=== PATIENT | male | born 1930 | race Caucasian/White ===

== ENCOUNTER → 2016-08-17 | Outpatient (CLI) | payer MEDICARE, BC ==
[~2016-08-17] MED LIST: ASPIRIN EC81 MG PO; COLACE-DPS100 MG PO; MAALOX DPS30 ML PO; PROCARDIA XL DP30 MG PO; TOPROL XL100 MG PO; TYLENOL DPS325 MG PO; XANAX DPS0.25 MG PO
== END | disposition home or self-care (01) ==
LOC: RAD.S 11:06
DX: R31.9 Hematuria, unspecified (principal); K59.00 Constipation, unspecified; Q61.02 Congenital multiple renal cysts; N40.0 Benign prostatic hyperplasia without lower urinary tract symptoms; K40.90 Unilateral inguinal hernia, without obstruction or gangrene, not specified as recurrent; R91.8 Other nonspecific abnormal finding of lung field

== ENCOUNTER 2016-09-08 04:51 | Inpatient (IN) | payer MEDICARE, BC ==
[~2016-09-08] VITALS: Ht 172.7 cm; Wt 70.4 kg
--- NOTE | ~2016-09-08 | HP ---
ADMIT: 09/08/2016 RM/LOC: 533 [facility] MR#: [id number] ACC#: [id number] [address] [address] DAIJA MILLER [address] [place] [address] History and Physical SEX: M AGE: 86 : 1930 DATE OF SERVICE: CHIEF COMPLAINT AND HISTORY OF THE PRESENT ILLNESS: This 86-year-old male, who is brought to the emergency room because of increasing weakness. He was found at home. He has had problems with decreasing strength. He has had problems of urinary retention. He has had a catheter inserted and there was no reported loss of consciousness. PREVIOUS MEDICAL HISTORY: Has been fair. MEDICATIONS: Include: 1. Metoprolol. 2. Aspirin. 3. Nifedipine. ALLERGIES: NONE. SOCIAL HISTORY: The patient has been a heavy smoker all of his life. He is . He has lived with his . He has ninth grade education. Alcohol is an occasional beer. FAMILY HISTORY: Includes heart disease, hypertension, cancer, and stroke. REVIEW OF SYSTEMS: HEENT: There has been some hearing loss and also he has had sinus problems. He wears glasses. CARDIORESPIRATORY: The patient has a history of hypertension. No myocardial infarctions. No chest pains or dyspnea. No deep vein thrombophlebitis or syncope. GI: No nausea, vomiting, constipation, bloody stools, diarrhea. He has had a malignancy in the colon and/or rectum. : There has been a history of prostatic hypertrophy and urinary retention. MUSCULOSKELETAL: NEUROPSYCHIATRIC: The patient has a history of memory loss. He also has been difficult to work with at home and has required help from home health care for baths. PHYSICAL EXAMINATION: VITAL SIGNS: Blood pressure is 146/78, respirations are 14, pulse was 75 and regular. HEENT: Revealed glasses and mild hearing loss. LUNGS/CHEST: Clear to percussion and auscultation. HEART: Regular rhythm with no murmur heard. No clinical evidence of cardiomegaly. ABDOMEN: Soft, nontender. Liver is not enlarged. Spleen is not palpable. No abnormal masses are palpated. Femoral pulses are strong and equal bilaterally. GENITALIA: Normal. ADMIT: 09/08/2016 RM/LOC: 533 [facility] MR#: [id number] [address] [address] JULIENJONNDAIJA [address] [place] [address] History and Physical SEX: M AGE: 86 : 1930 EXTREMITIES: No cyanosis, clubbing or edema. ASSESSMENT: 1. Acute renal insufficiency with hyperkalemia. 2. Pyuria with probable urinary tract infection. 3. Mild dementia. 4. Increasing weakness. 5. Hyperkalemia. 6. History of gastrointestinal malignancy. 7. Hypertension. PLAN: Mariano Freire MD/ barb JOB #: [id number] CC: Mariano Freire, Attending Physician Mariano Freire, Family Physician
--- NOTE | 2016-09-12 20:15 | ER ---
ADMIT: 09/08/2016 RM/LOC: ER [facility] MR#: [id number] [address] [facility] [address] [place], [place] [address] DAIJA MILLER King [address] [place] [address] Emergency Room Report SEX: M AGE: 86 : 1930 DATE: 09/08/2016 TIME: 0451 hours. PRIMARY CARE: Mariano Freire MD Please refer to my T-sheet for complete H and P. HISTORY OF PRESENT ILLNESS: Briefly, the patient is an 86-year-old that fell, was found down, does not know exactly what happened. He has a history of some confusion at baseline, but they think he is more confused. He also had bladder surgery just recently and has the Espinosa catheter in. He is a very poor historian. He has really minimal complaints, although due to the weakness, they could not get him up and called an ambulance. PHYSICAL EXAMINATION: VITAL SIGNS: His blood pressure 146/72, pulse 75, respirations 16, temp 98.7, and sat 98%. GENERAL: No acute distress. HEENT: Grossly normal. LUNGS: Clear. HEART: Regular. ABDOMEN: Soft. SKIN: No rash. NEURO: He is confused a little bit, but just mostly to situation, generally weak. He says not getting around. EMERGENCY DEPARTMENT COURSE: His CBC was normal except hemoglobin 12.9. Chemistries normal except sodium 134, potassium 5.8, BUN 26, glucose 117, and creatinine 2.7. His troponin was negative. His urine showed 1+ blood, 3+ leukocyte esterase, 17 red cells, and 21 white cells. EKG was sinus rhythm, rate 72, with a right bundle branch block. I gave him a 500 mL normal saline bolus. We then upgraded him to sepsis pathway as he is going to require admission. I talked to Dr. Freire, who will admit to the hospital, start antibiotics here. ASSESSMENT: 1. General weakness. 2. Acute renal failure. 3. Hyperkalemia. 4. Pyuria with an indwelling Espinosa. PLAN: We will admit to the hospital. Emeterio French MD/ barb JOB #: [id number] CC: ADMIT: 09/08/2016 RM/LOC: [facility] MR#: [id number] [address] [address] DAIJA MILLER [address], [place] [address] Emergency Room Report SEX: M AGE: 86 : 1930 Emeterio French MD, Attending Physician
[2016-09-13] MEDS ORDERED: ASPIRIN EC81 MG PO (15:03)
[2016-09-13] MEDS ORDERED: MAALOX DPS30 ML PO (15:03)
[2016-09-13] MEDS ORDERED: PROCARDIA XL DP30 MG PO (15:03)
[2016-09-13] MEDS ORDERED: TOPROL XL100 MG PO (15:03)
[2016-09-13] MEDS ORDERED: COLACE-DPS100 MG PO (15:03)
[2016-09-13] MEDS ORDERED: XANAX DPS0.25 MG PO (15:04)
[2016-09-13] MEDS ORDERED: TYLENOL DPS325 MG PO (15:04)
--- NOTE | 2016-09-14 12:04 | DS ---
ADMIT: 09/08/2016 RM/LOC: 533 [facility] MR#: [id number] ACC#: [id number] [address] [address] JULIENDAIJA LUNSFORD King [address] [place] [address] Discharge Summary SEX: M AGE: 86 : 1930 ADMISSION DATE: 09/08/2016 DISCHARGE DATE: 09/12/2016 HISTORY AND PHYSICAL: Please see the chart. LABORATORY AND X-RAY DATA: Please refer to laboratory and x-ray summaries on the medical record. CLINICAL COURSE: This 86-year-old male was admitted following increased weakness and nausea at home. He had not been eating and drinking. His renal function had deteriorated considerably. He was in acute renal insufficiency with hyperkalemia and dehydration. He was given intravenous fluids. Initially placed on a full liquid diet and he was continued on his antihypertensive medications. The urine culture was drawn and I was concerned about a urinary tract infection. He was started on Rocephin 1 g IV daily. He was also placed on Lovenox for DVT prophylaxis. He was placed on telemetry because of the hyperkalemia. He is a DNR, which was continued. Over the next days, the renal function improved considerably. The hyperkalemia improved. He did require Kayexalate. He also has an indwelling catheter. His x-ray showed some atelectasis or early pneumonia and he was placed on twin jet nebulizer treatments. He was afebrile. His blood pressure was mildly elevated. His metoprolol was increased. His confusion would come and go. He did improve considerably with Xanax, which was given 0.25 mg t.i.d. p.r.n. Telemetry was discontinued. He was placed on a 2 g sodium diet. His Rocephin was discontinued. He is discharged to [facility]. He will continue physical therapy. He will continue his increased dose of metoprolol. He will be seeing Dr. Smith for follow-up visit for his urinary retention and prostatic hypertrophy. He will need follow-up visit for his history of gastrointestinal malignancy. Continue physical therapy and occupational therapy at the detention. FINAL DIAGNOSES: 1. Acute renal insufficiency with hyperkalemia. 2. Dehydration. 3. Pyuria. 4. Prostatic hypertrophy with urinary retention. 5. Increased weakness. 6. Hypertension. 7. History of gastrointestinal malignancy. 8. History of CVA (cerebrovascular accident). Mariano Freire MD/ myla JOB #: [id number] CC: Mariano Freire MD, Attending Physician Mariano Freire MD, Family Physician
== END 2016-09-12 14:40 | DRG 699 ==
LOC: ER 04:51 → 5MS 06:04
DX: N28.9 Disorder of kidney and ureter, unspecified (principal); J98.11 Atelectasis; E87.5 Hyperkalemia; E86.0 Dehydration; N39.0 Urinary tract infection, site not specified; I10 Essential (primary) hypertension; F17.200 Nicotine dependence, unspecified, uncomplicated; N40.1 Benign prostatic hyperplasia with lower urinary tract symptoms; I45.10 Unspecified right bundle-branch block; R33.9 Retention of urine, unspecified; Z79.82 Long term (current) use of aspirin; Z85.038 Personal history of other malignant neoplasm of large intestine; Z66 Do not resuscitate; Z86.73 Personal history of transient ischemic attack (TIA), and cerebral infarction without residual deficits